=== PATIENT | female | born 1985 | race Two or more races ===

== ENCOUNTER 2022-11-12 00:31 | Emergency (ER) | payer OTHER ==
[~2022-11-12] VITALS: Ht 157.5 cm; Wt 122.5 kg
[2022-11-12] MEDS ORDERED: ALEVE220 M1 PO (00:42)
== END 2022-11-12 07:44 | disposition home or self-care (01) ==
LOC: ER 00:31
DX: R10.32 Left lower quadrant pain (principal); N83.202 Unspecified ovarian cyst, left side; K57.30 Diverticulosis of large intestine without perforation or abscess without bleeding; K80.20 Calculus of gallbladder without cholecystitis without obstruction; Z88.2 Allergy status to sulfonamides